=== PATIENT | female | born 1990 | race Caucasian/White ===

== ENCOUNTER → 2017-01-03 | Outpatient (CLI) | payer BC ==
[~2017-01-03] MED LIST: GADOBUTROL 10 ML VIAL IVP ONE
== END ==
LOC: FIMAGING 10:09
DX: H54.7 Unspecified visual loss (principal)
CPT/HCPCS: A9585

== ENCOUNTER 2017-02-17 11:43 | Emergency (ER) | payer BC ==
[2017-02-17] MEDS ORDERED: oxyCODONE IR 5 MG TAB PO ONE (12:26)
[2017-02-17] MEDS ORDERED: AMOXICILLIN/CLAVULANATE POT 875/125 MG TAB PO ONE (12:26)
--- NOTE | 2017-02-17 12:29 | EDPHY ---
H & P Time Seen by Provider: 02/17/17 12:09 HPI/ROS: CHIEF COMPLAINT: Throat pain HISTORY OF PRESENT ILLNESS: Patient is a 26-year-old female presents emergency department with sore throat. She underwent endoscopy on 02/14 by Jemma raymundo. She cannot recall the physician's name. She states since that time she has had a sore throat. Her throat is worsened. She states the left is worse than the right. It is worse with swallowing. She has noticed streaks of blood in the back of her throat. She has also noticed white patches. No nausea vomiting. She reports mild fever. REVIEW OF SYSTEMS: My complete review of systems is negative except as mentioned in the HPI. Past Medical/Surgical History: Includes retinal vasculitis, back discomfort Smoking Status: Never smoked Physical Exam: 37.2, 112/43, 112, 20, 98% on room air GENERAL: Tearful, alert. HEENT: Eyes normal to inspection, no signs of dehydration. There is diffuse pharyngeal erythema. Bilateral tonsillar discharge. Tonsils are enlarged. Uvula is midline. There is no asymmetry. I see no ulcerations. No airway occlusion. No active bleeding. NECK: No thyromegaly, no lymphadenopathy, supple. No stridor. RESPIRATORY: Clear to auscultation bilaterally, no rales, rhonchi or wheezing. CVS: Regular rate and rhythm, no rubs, murmurs, or gallops. ABDOMEN: Soft, nontender, nondistended, no organomegaly. BACK: Normal to inspection, no CVA tenderness. SKIN: Normal color, no rash, warm, dry. No pallor. EXTREMITIES: No pedal edema, no calf tenderness, no Homans sign or cords, no joint swelling. NEURO/PSYCH: Alert and oriented x3, normal mood and affect, normal motor sensory exam. Constitutional: Initial Vital Signs Temperature (C) 37.2 C 02/17/17 11:46 Heart Rate 112 H 02/17/17 11:46 Respiratory Rate 20 02/17/17 11:46 Blood Pressure 112/43 L 02/17/17 11:46 O2 Sat (%) 98 02/17/17 11:46 O2 Delivery Mode Room Air Allergies/Adverse Reactions: acetaminophen [From Tylenol] Allergy (Verified 02/17/17 11:45) Home Medications: Medication Instructions Recorded Amoxicillin/Clavulanate Pot 875 mg PO BID 10 Days 02/17/17 [Augmentin 875 mg tab] Xanax 02/17/17 oxyCODONE IR [Oxycodone Ir (*)] 5 - 10 mg PO Q4 #15 tab 02/17/17 Medical Decision Making ED Course/Re-evaluation: In the emergency department I discussed possible etiologies with the patient. I answered all her questions. She is given Augmentin 875 mg orally. She was given Oxy IR 10 mg orally. I offered her a dose of steroids which she refused. I explained the pros and cons. I answered all her questions. I discussed the case with Dr. Umberto Rodriguez from GI. He recommends CT soft tissue of the neck with IV contrast. I discussed this with the patient. I answered all her questions. Patient was noted have a fever to 38. Patient was given Toradol 30 mg IV (she initially refused). [place] [address]. Her strep screen was negative. CT of the neck: Please refer the dictated report by the radiologist. I discussed the results with the patient. I answered all her questions. She will take Augmentin for pharyngitis. She was given Oxy IR for pain. She will follow up with [facility]. Differential Diagnosis: My differential includes but is not limited to pharyngitis, tonsillitis, epiglottitis, tracheitis, laceration, esophageal rupture - Data Points Laboratory Results: Laboratory Results 02/17/17 13:19 02/17/17 13:19 02/17/17 02/17/17 02/17/17 Unknown 14:30 13:19 WBC RBC Hgb Hct MCV MCH MCHC RDW Plt Count MPV Neut % (Auto) Lymph % (Auto) [place] % (Auto) Eos % (Auto) Baso % (Auto) Nucleat RBC Rel Count Absolute Neuts (auto) Absolute Lymphs (auto) Absolute Monos (auto) Absolute Eos (auto) Absolute Basos (auto) Absolute Nucleated RBC Immature Gran % Immature Gran # Sodium Potassium Chloride Carbon Dioxide Anion Gap BUN Creatinine Estimated GFR Glucose Calcium Beta HCG, Qual NEGATIVE Group A Strep Screen NEGATIVE (NEGATIVE) Group A Strep DNA Pending 02/17/17 02/17/17 13:19 13:19 WBC 15.25 10^3/uL H 10^3/uL (3.80-9.50) RBC 5.11 10^6/uL 10^6/uL (4.18-5.33) Hgb 14.5 g/dL g/dL (12.6-16.3) Hct 42.4 % % (38.0-47.0) MCV 83.0 fL fL (81.5-99.8) MCH 28.4 pg pg (27.9-34.1) MCHC 34.2 g/dL g/dL (32.4-36.7) RDW 13.2 % % (11.5-15.2) Plt Count 208 10^3/uL 10^3/uL (150-400) MPV 11.1 fL fL (8.7-11.7) Neut % (Auto) 89.9 % H % (39.3-74.2) Lymph % (Auto) 4.0 % L % (15.0-45.0) [place] % (Auto) 5.3 % % (4.5-13.0) Eos % (Auto) 0.0 % L % (0.6-7.6) Baso % (Auto) 0.3 % % (0.3-1.7) Nucleat RBC Rel Count 0.0 % % (0.0-0.2) Absolute Neuts (auto) 13.70 10^3/uL H 10^3/uL (1.70-6.50) Absolute Lymphs (auto) 0.61 10^3/uL L 10^3/uL (1.00-3.00) Absolute Monos (auto) 0.81 10^3/uL H 10^3/uL (0.30-0.80) Absolute Eos (auto) 0.00 10^3/uL L 10^3/uL (0.03-0.40) Absolute Basos (auto) 0.05 10^3/uL 10^3/uL (0.02-0.10) Absolute Nucleated RBC 0.00 10^3/uL 10^3/uL (0-0.01) Immature Gran % 0.5 % % (0.0-1.1) Immature Gran # 0.08 10^3/uL 10^3/uL (0.00-0.10) Sodium 135 mEq/L mEq/L (134-144) Potassium 3.7 mEq/L mEq/L (3.5-5.2) Chloride 100 mEq/L mEq/L (97-110) Carbon Dioxide 21 mEq/l L mEq/l (22-31) Anion Gap 14 mEq/L mEq/L (8-16) BUN 10 mg/dL mg/dL (7-23) Creatinine 0.8 mg/dL mg/dL (0.6-1.0) Estimated GFR > 60 Glucose 93 mg/dL mg/dL (70-100) Calcium 10.2 mg/dL mg/dL (8.5-10.4) Beta HCG, Qual Group A Strep Screen Group A Strep DNA Medications Given: Discontinued Medications Amoxicillin/Clavulanate Potassium (Augmentin 875mg) 875 mg PO EDNOW ONE PRN Reason: Protocol Stop: 02/17/17 12:27 Last Admin: 02/17/17 12:41 Dose: 875 mg Sodium Chloride (Ns) 1,000 mls @ 0 mls/hr IV EDNOW ONE; Wide Open PRN Reason: Protocol Stop: 02/17/17 14:38 Last Admin: 02/17/17 14:38 Dose: 1,000 mls Ketorolac Tromethamine (Toradol) 30 mg IVP EDNOW ONE Stop: 02/17/17 14:22 Last Admin: 02/17/17 14:30 Dose: 30 mg Ondansetron HCl (Zofran) 4 mg IVP EDNOW ONE Stop: 02/17/17 14:26 Last Admin: 02/17/17 14:30 Dose: 4 mg Oxycodone HCl (Oxycodone Ir) 10 mg PO EDNOW ONE Stop: 02/17/17 12:27 Last Admin: 02/17/17 12:34 Dose: 10 mg Departure - Departure Disposition: Home, Routine, Self-Care Clinical Impression: Acute pharyngitis Qualifiers: Pharyngitis/tonsillitis etiology: unspecified etiology Qualified Code(s): J02.9 - Acute pharyngitis, unspecified Condition: Good Instructions: Pharyngitis (ED) Additional Instructions: Return with increasing pain, discharge, shortness of breath, difficulty swallowing or any other concerns. Referrals: [facility] [Provider Group] - As per Instructions Prescriptions: Amoxicillin/Clavulanate Pot [Augmentin 875 mg tab] 875 mg PO BID 10 Days oxyCODONE IR [Oxycodone Ir (*)] 5 - 10 mg PO Q4 #15 tab
[2017-02-17 14:09] VITALS: RESP 18; O2SAT 97
[2017-02-17] MEDS ORDERED: KETOROLAC 30 MG/1 ML SDV IVP ONE (14:21)
[2017-02-17] MEDS ORDERED: ONDANSETRON 4 MG/2 ML VIAL IVP ONE (14:25)
[2017-02-17] MEDS ORDERED: NS 1,000 ML IV ONE (14:37)
[2017-02-17 14:46] LABS: % IMMATURE GRANULYOCYTES 0.5 % (0.0-1.1); ABSOLUTE IMMATURE GRANULOCYTES 0.08 10^3/uL (0.00-0.10); ADD DIFF? NO; ADD MORPH? NO; ADD SCAN? NO; ATYPICAL LYMPHOCYTE FLAG 0 (0-99); FRAGMENT RBC FLAG 0 (0-99); HEMATOCRIT 42.4 % (38.0-47.0); HEMOGLOBIN 14.5 g/dL (12.6-16.3); LEFT SHIFT FLG 10 (0-99); LIPEMIA HEMOLYSIS FLAG 90 (0-99); MEAN CELL HEMOGLOBIN 28.4 pg (27.9-34.1); MEAN CELL HEMOGLOBIN CONCENTR. 34.2 g/dL (32.4-36.7); MEAN PLATELET VOLUME 11.1 fL (8.7-11.7); PLATELET CLUMPS FLAG 0 (0-99); PLATELET COUNT 208 10^3/uL (150-400); RED BLOOD CELL COUNT 5.11 10^6/uL (4.18-5.33); RED CELL DISTRIBUTION WIDTH 13.2 % (11.5-15.2)
[2017-02-17 14:51] LABS: ANION GAP 14 mEq/L (8-16); CALCIUM 10.2 mg/dL (8.5-10.4); CARBON DIOXIDE 21 mEq/l (22-31); CHLORIDE 100 mEq/L (97-110); CREATININE 0.8 mg/dL (0.6-1.0); GLOMERULAR FILTRATION RATE > 60; GLUCOSE 93 mg/dL (70-100); POTASSIUM 3.7 mEq/L (3.5-5.2); SODIUM 135 mEq/L (134-144)
[2017-02-17] MEDS ORDERED: IOPAMIDOL (ISOVUE-300) 100 ML BTL ONE (14:59)
[2017-02-17 15:59] VITALS: BP 96/64; PULSE 94; TEMP 99.9
== END 2017-02-17 15:59 | disposition home or self-care (01) ==
DX: J02.9 Acute pharyngitis, unspecified (principal); E86.9 Volume depletion, unspecified
CPT/HCPCS: 96374; J1885; J2405; Q9967

== ENCOUNTER 2017-02-18 21:45 | Emergency (ER) | payer BC ==
[2017-02-18] MEDS ORDERED: NS 1,000 ML IV ONE (22:54)
[2017-02-18] MEDS ORDERED: HYDROmorphONE/DILAUDID 1 MG/ML SYR IVP ONE (22:54)
--- NOTE | 2017-02-18 22:58 | EDPHY ---
H & P Stated Complaint: ongoing sore throat, fever, despite Abx Time Seen by Provider: 02/18/17 21:57 HPI/ROS: CHIEF COMPLAINT: Sore throat HISTORY OF PRESENT ILLNESS: The patient is a 26-year-old female with a un- diagnosed autoimmune disease. She had an upper endoscopy on the and has had increasingly sore throat since. She has also developed a fever and some white tonsillar exudate. Yesterday she was seen here in the ER and had a CT scan of her neck that showed lymphadenopathy but no abscess or phlegmon her hematoma. The patient was started on Augmentin. She is offered steroids but declined. She is taking oxycodone 10 mg tablets for pain control and ibuprofen. She is able to swallow these tablets but states that it is painful. She states that she does not want to eat or drink because of the pain and so her clerk of superior court told her to come into the emergency department. She also was seen at her primary is office today and tested for mono. The results are not back yet. REVIEW OF SYSTEMS: Constitutional: denies: chills, fever, recent illness, recent injury EENTM: denies: blurred vision, double vision, nose congestion Respiratory: denies: cough, shortness of breath Cardiac: denies: chest pain, irregular heart rate, lightheadedness, palpitations Gastrointestinal/Abdominal: denies: abdominal pain, diarrhea, nausea, vomiting, blood streaked stools Genitourinary: denies: dysuria, frequency, hematuria, pain Musculoskeletal: denies: joint pain, muscle pain Skin: denies: lesions, rash, jaundice, bruising Neurological: denies: headache, numbness, paresthesia, tingling, dizziness, weakness Hematologic/Lymphatic: denies: blood clots, easy bleeding, easy bruising Immunologic/allergic: denies: HIV/AIDS, transplant EXAM: GENERAL: Well-appearing, well-nourished and in no acute distress. HEAD: Atraumatic, normocephalic. EYES: Pupils equal round and reactive to light, extraocular movements intact, sclera anicteric, conjunctiva are normal. ENT: TMs normal, nares patent, mild exudate on tonsils, no significant swelling or edema. Anterior cervical lymphadenopathy . Moist mucous membranes. NECK: Normal range of motion, supple without lymphadenopathy or JVD. LUNGS: Breath sounds clear to auscultation bilaterally and equal. No wheezes rales or rhonchi. HEART: Regular rate and rhythm without murmurs, rubs or gallops. ABDOMEN: Soft, nontender, normoactive bowel sounds. No guarding, no rebound. No masses appreciated. BACK: No CVA tenderness, no spinal tenderness, step-offs or deformities EXTREMITIES: Normal range of motion, no pitting or edema. No clubbing or cyanosis. NEUROLOGICAL: Cranial nerves II through XII grossly intact. Normal speech, normal gait. 5/5 strength, normal movement in all extremities, normal sensation PSYCH: Normal mood, normal affect. SKIN: Warm, dry, normal turgor, no visible rashes or lesions. Source: Patient Exam Limitations: No limitations - Personal History Current Tetanus/Diphtheria Vaccine: Yes - Medical/Surgical History Hx Asthma: No Hx Chronic Respiratory Disease: No Hx Diabetes: No Hx Cardiac Disease: No Hx Renal Disease: No Hx Cirrhosis: No Hx Alcoholism: No Hx HIV/AIDS: No Hx Splenectomy or Spleen Trauma: No Other PMH: PMHx: back prob/retinal vasculitis. PSHx: endoscopy - Family History Significant Family History: No pertinent family hx - Social History Smoking Status: Never smoked Alcohol Use: Sober Drug Use: None Constitutional: Initial Vital Signs Temperature (C) 37.4 C 02/18/17 21:49 Heart Rate 86 02/18/17 21:49 Respiratory Rate 14 02/18/17 21:49 Blood Pressure 134/56 H 02/18/17 21:49 O2 Sat (%) 97 02/18/17 21:49 O2 Delivery Mode Room Air Allergies/Adverse Reactions: No Known Allergies Allergy (Unverified 02/18/17 21:49) Home Medications: Medication Instructions Recorded Amoxicillin/Clavulanate Pot 875 mg PO BID 10 Days 02/17/17 [Augmentin 875 mg tab] oxyCODONE IR [Oxycodone Ir (*)] 5 - 10 mg PO Q4 #15 tab 02/17/17 HYDROmorphone HCL [Dilaudid 2 mg 2 mg PO Q4-6PRN PRN #14 tab 02/19/17 (RX)] Medical Decision Making ED Course/Re-evaluation: 12:00 a.m.. We are unable to contact the patient's clerk of superior court after several attempts. We did contact their office. She will follow up with them in the next day or 2. She is asking to switch to oral Dilaudid hoping that it will work better than it oxycodone. I am agreeable to this. I will give her a small dose here in the emergency department as well. She has been hydrated. Her mono test is negative. Differential Diagnosis: Partial list of the Differential diagnosis considered include but were not limited to; viral pharyngitis, strep throat, mononucleosis, irritation and although unlikely based on the history and physical exam, I also considered abscess, hematoma, dissection. I discussed these differential diagnoses and the plan with the patient as well as the usual and expected course. The patient understands that the diagnosis is provisional and that in medicine we are not always correct and that further workup is often warranted. Usual and customary warnings were given. All of the patient's questions were answered. The patient was instructed to return to the emergency department should the symptoms at all worsen or return, otherwise to followup with the physician as we discussed. - Data Points Laboratory Results: 02/18/17 23:15 Monoscreen NEGATIVE (NEGATIVE) Medications Given: Discontinued Medications Hydromorphone HCl (Dilaudid) 1 mg IVP EDNOW ONE Stop: 02/18/17 22:55 Last Admin: 02/18/17 23:21 Dose: Not Given Hydromorphone HCl (Dilaudid) 0.5 mg IVP EDNOW ONE Stop: 02/19/17 00:02 Last Admin: 02/19/17 00:11 Dose: 0.5 mg Sodium Chloride (Ns) 1,000 mls @ 0 mls/hr IV EDNOW ONE; Wide Open PRN Reason: Protocol Stop: 02/18/17 22:55 Last Admin: 02/18/17 23:13 Dose: 1,000 mls Departure - Departure Disposition: Home, Routine, Self-Care Clinical Impression: Acute viral pharyngitis Condition: Fair Instructions: Pharyngitis (ED) Referrals: WILLIAM DOUGLAS [Other] - As per Instructions MAME FALCON [Non Staff Provider (MD)] - 1 day without fail Stand Alone Forms: Work Excuse Prescriptions: HYDROmorphone HCL [Dilaudid 2 mg (RX)] 2 mg PO Q4-6PRN PRN #14 tab PRN Reason: Pain, Mild
[2017-02-19] MEDS ORDERED: HYDROmorphONE/DILAUDID 1 MG/ML SYR IVP ONE (00:01)
[2017-02-19 01:03] VITALS: BP 104/65; PULSE 62; RESP 18; TEMP 98.6; O2SAT 98
== END 2017-02-19 00:50 | disposition home or self-care (01) ==
DX: J02.8 Acute pharyngitis due to other specified organisms (principal); B97.89 Other viral agents as the cause of diseases classified elsewhere; E86.9 Volume depletion, unspecified
CPT/HCPCS: 96374; J1170

== ENCOUNTER → 2017-05-12 | Outpatient (CLI) | payer BC | LOC: FIMAGING 13:15 | PROVIDERS: ATTEND Internal Medicine Rheumatology | DX: R05 Cough (principal); H35.063 Retinal vasculitis, bilateral ==

== ENCOUNTER 2018-10-17 11:04 | Emergency (ER) | payer MEDICAID ==
[2018-10-17 11:37] LABS: PLATELET COUNT 221 10^3/uL (150-400)
--- NOTE | 2018-10-17 11:58 | EDPHY ---
H & P Stated Complaint: chest pain Time Seen by Provider: 10/17/18 11:14 HPI/ROS: CHIEF COMPLAINT: Chest pain, right leg cramping HISTORY OF PRESENT ILLNESS: 28-year-old female presents with chest pain and right leg cramping. Onset of sharp and stabbing central chest pain yesterday evening. The pain lasted approximately 2 sec and then resolved. Multiple episodes yesterday. She took ibuprofen with relief. No chest pain today. Onset right calf cramping prior to arrival. No associated swelling. Prolonged airplane travel from [place] 3 days ago. REVIEW OF SYSTEMS: complete 10 point ROS reviewed and is negative except for the noted elements in the HPI - Personal History LMP (Females 10-55): 22-28 Days Ago Current Tetanus Diphtheria and Acellular Pertussis (TDAP): Yes - Medical/Surgical History Hx Asthma: No Hx Chronic Respiratory Disease: No Hx Diabetes: No Hx Cardiac Disease: No Hx Renal Disease: No Hx Cirrhosis: No Hx Alcoholism: No Hx HIV/AIDS: No Hx Splenectomy or Spleen Trauma: No Other PMH: PMHx: back prob/retinal vasculitis. PSHx: endoscopy - Social History Smoking Status: Never smoked Alcohol Use: Sober Drug Use: None - Physical Exam Exam: General Appearance: Alert, pleasant Eyes: no conjunctival pallor or injection ENT, Mouth: Mucous membranes moist Neck: Normal inspection Respiratory: Lungs are clear to auscultation Cardiovascular: Regular rate and rhythm, no murmur Gastrointestinal: Abdomen is soft and nontender Neurological: A&O, nonfocal, normal gait Skin: Warm and dry Extremities: Nontender, no pedal edema Psychiatric: Mood and affect normal Constitutional: Initial Vital Signs Temperature (C) 36.7 C 10/17/18 11:13 Heart Rate 65 10/17/18 11:13 Respiratory Rate 16 10/17/18 11:13 Blood Pressure 134/89 H 10/17/18 11:13 O2 Sat (%) 97 10/17/18 11:13 O2 Delivery Mode Room Air Allergies/Adverse Reactions: No Known Allergies Allergy (Unverified 02/18/17 21:49) Medical Decision Making - Diagnostics Imaging Results: Imaging Impressions Extremity Venous Study 10/17/18 11:25 Impression: No deep venous thrombosis right leg. Imaging: Discussed imaging studies w/ will call clerk Radiologist ED Course/Re-evaluation: This patient presents with pleuritic chest pain and right calf cramping, concerning for VTE. RLE sono ordered and is unremarkable. D-dimer is normal. Given no RF for VTE and normal sono/ddimer, I feel that I can safely exclude PE. Results d/w pt. CXR advised, pt declines d/t multiple prior radiologic studies. This is reasonable, given no cp today. Warning signs discussed. f/u PCP. Differential Diagnosis: Differential diagnosis includes though it is not limited to pneumonia, pneumothorax, pulmonary embolism, aortic dissection, pericarditis, acute coronary syndrome. - Data Points Laboratory Results: Laboratory Results 10/17/18 11:15 10/17/18 11:15 10/17/18 10/17/18 10/17/18 11:28 11:15 11:15 WBC RBC Hgb POC Hgb 14.3 gm/dL gm/dL (12.6-16.3) Hct POC Hct 42 % % (38-47) MCV MCH MCHC RDW Plt Count MPV Neut % (Auto) Lymph % (Auto) [place] % (Auto) Eos % (Auto) Baso % (Auto) Nucleat RBC Rel Count Absolute Neuts (auto) Absolute Lymphs (auto) Absolute Monos (auto) Absolute Eos (auto) Absolute Basos (auto) Absolute Nucleated RBC Immature Gran % Immature Gran # D-Dimer < 0.27 ug/mLFEU ug/mLFEU (0.00-0.50) POC Sodium 144 mEq/L mEq/L (135-145) Sodium 139 mEq/L mEq/L (135-145) POC Potassium 3.6 mEq/L mEq/L (3.3-5.0) Potassium 3.9 mEq/L mEq/L (3.5-5.2) POC Chloride 106 mEq/L mEq/L (97-110) Chloride 108 mEq/L mEq/L (97-110) Carbon Dioxide 22 mEq/l mEq/l (22-31) POC Total CO2 22 mEq/L mEq/L (22-31) Anion Gap 9 mEq/L mEq/L (6-14) POC BUN 9 mg/dL mg/dL (7-23) BUN 11 mg/dL mg/dL (7-23) Creatinine 0.7 mg/dL mg/dL (0.6-1.0) POC Creatinine 0.7 mg/dL mg/dL (0.6-1.0) Estimated GFR > 60 Glucose 95 mg/dL mg/dL (70-100) POC Glucose 96 mg/dL mg/dL (70-100) Calcium 9.7 mg/dL mg/dL (8.5-10.4) 10/17/18 11:15 WBC 5.53 10^3/uL 10^3/uL (3.80-9.50) RBC 4.74 10^6/uL 10^6/uL (4.18-5.33) Hgb 13.8 g/dL g/dL (12.6-16.3) POC Hgb Hct 41.3 % % (38.0-47.0) POC Hct MCV 87.1 fL fL (81.5-99.8) MCH 29.1 pg pg (27.9-34.1) MCHC 33.4 g/dL g/dL (32.4-36.7) RDW 12.0 % % (11.5-15.2) Plt Count 221 10^3/uL 10^3/uL (150-400) MPV 10.6 fL fL (8.7-11.7) Neut % (Auto) 45.2 % % (39.3-74.2) Lymph % (Auto) 44.3 % % (15.0-45.0) [place] % (Auto) 8.5 % % (4.5-13.0) Eos % (Auto) 0.9 % % (0.6-7.6) Baso % (Auto) 0.9 % % (0.3-1.7) Nucleat RBC Rel Count 0.0 % % (0.0-0.2) Absolute Neuts (auto) 2.50 10^3/uL 10^3/uL (1.70-6.50) Absolute Lymphs (auto) 2.45 10^3/uL 10^3/uL (1.00-3.00) Absolute Monos (auto) 0.47 10^3/uL 10^3/uL (0.30-0.80) Absolute Eos (auto) 0.05 10^3/uL 10^3/uL (0.03-0.40) Absolute Basos (auto) 0.05 10^3/uL 10^3/uL (0.02-0.10) Absolute Nucleated RBC 0.00 10^3/uL 10^3/uL (0-0.01) Immature Gran % 0.2 % % (0.0-1.1) Immature Gran # 0.01 10^3/uL 10^3/uL (0.00-0.10) D-Dimer POC Sodium Sodium POC Potassium Potassium POC Chloride Chloride Carbon Dioxide POC Total CO2 Anion Gap POC BUN BUN Creatinine POC Creatinine Estimated GFR Glucose POC Glucose Calcium Point of Care Test Results: Chemistry 10/17/18 11:28 POC Sodium 144 mEq/L mEq/L (135-145) POC Potassium 3.6 mEq/L mEq/L (3.3-5.0) POC Chloride 106 mEq/L mEq/L (97-110) POC Total CO2 22 mEq/L mEq/L (22-31) POC BUN 9 mg/dL mg/dL (7-23) POC Creatinine 0.7 mg/dL mg/dL (0.6-1.0) POC Glucose 96 mg/dL mg/dL (70-100) ISTAT H&H 10/17/18 11:28 POC Hgb 14.3 gm/dL gm/dL (12.6-16.3) POC Hct 42 % % (38-47) Departure - Departure Disposition: Home, Routine, Self-Care Clinical Impression: Leg cramps Chest pain Qualifiers: Chest pain type: other chest pain Qualified Code(s): R07.89 - Other chest pain ; R07.8 - Other chest pain Condition: Good Instructions: Leg Cramps (ED), Noncardiac Chest Pain (ED) Additional Instructions: The ultrasound of your right leg is normal. You do not have a blood clot. In addition, the screening blood test for a blood clot is normal. Referrals: Guera Price MD [Medical Doctor] - As per Instructions
[2018-10-17 12:37] VITALS: BP 130/84
--- NOTE | 2018-10-17 12:41 | CPEKG ---
Test Reason : OPEN Blood Pressure : / mmHG Vent. Rate : 061 BPM Atrial Rate : 059 BPM P-R Int : 109 ms QRS Dur : 102 ms QT Int : 422 ms P-R-T Axes : 051 076 061 degrees QTc Int : 425 ms Sinus rhythm Short NE interval Confirmed by Charo Anaya ([id number]) on 10/17/2018 12:41:33 PM Referred By: Charo Anaya Confirmed By:Charo Anaya
== END 2018-10-17 12:37 | disposition home or self-care (01) ==
DX: R07.89 Other chest pain (principal); R25.2 Cramp and spasm
CPT/HCPCS: 82435-PO; 82565-PO; 82947-PO; 84132-PO; 84295-PO; 84520-PO; 85014-ER